=== PATIENT | female | born 1985 | race Caucasian/White ===

== ENCOUNTER 2018-11-09 07:15 | Day surgery (SDC) | payer BC, OTHER ==
[2018-11-08 10:58] VITALS: BMI 33.6
[2018-11-09] MEDS ORDERED: MIDAZOLAM HCL 2 MG/2 ML SINGLE DOSE VIAL ONE ×2 (08:20→09:05)
[2018-11-09] MEDS ORDERED: PROPOFOL 20 ML ONE (08:20)
[2018-11-09] MEDS ORDERED: SUCCINYLCHOLINE CHLORIDE 200 MG/10 ML VIAL ONE (08:20)
[2018-11-09] MEDS ORDERED: fentaNYL CITRATE 250 MCG/5 ML VIAL ONE (08:20)
[2018-11-09] MEDS ORDERED: DEXAMETHASONE SOD PHOSPHATE 4 MG/1 ML VIAL ONE (08:21)
[2018-11-09] MEDS ORDERED: LIDOCAINE HCL/PF 2% SDV 5ML VIAL ONE (08:21)
[2018-11-09] MEDS ORDERED: ceFAZolin SODIUM 1 GM VIAL ONE (09:23)
[2018-11-09] MEDS ORDERED: ceFAZolin SODIUM 1 GM VIAL IVPB ONE (09:25)
[2018-11-09] MEDS ORDERED: ONDANSETRON 4 MG/2 ML VIAL IVPUSH PRN (09:44)
[2018-11-09] MEDS ORDERED: oxyCODONE HCL 5 MG TABLET PO PRN ×2 (09:44)
[2018-11-09] MEDS ORDERED: LACTATED RINGERS SOLUTION 1,000 ML IV SCH (09:45)
[2018-11-09] MEDS ORDERED: BUPIVACAINE HCL/PF 0.5% (5MG/ML) 10 ML VIAL ONE (09:52)
[2018-11-09] MEDS ORDERED: BUPIVACAINE HCL/PF (5 MG/ML) 30 ML VIAL IJ ONE (09:55)
--- NOTE | 2018-11-09 10:25 | OP ---
Operative Note - Note: Operative Date: 11/09/18 Pre-Operative Diagnosis: Painful Mass Left Lower Breast Operation: Excision of Painful Lower Breast Mass Post-Operative Diagnosis: Same as Pre-op Surgeon: David Malcolm Anesthesia: General Specimens Removed: Mass Lower Breast Operative Report Dictated: Yes
--- NOTE | 2018-11-09 10:59 | OP ---
DATE OF OPERATION: 11/09/2018 PREOPERATIVE DIAGNOSIS: Painful mass, left lower breast. POSTOPERATIVE DIAGNOSIS: Painful mass, left lower breast. PROCEDURE PERFORMED: Excision of painful mass, left lower breast. SURGEON: David Kaiser MD ANESTHESIA: General via LMA. DESCRIPTION OF PROCEDURE: The patient was on the operating table in the supine position, and general anesthesia was administered by the anesthesiologist. The area of the left breast was prepped and draped in the usual sterile manner. An elliptical excision was designed with the patient in a standing position with vertical orientation, and these markings were now used as a guide for surgery. The elliptical outline was incised with a No. 15 scalpel blade and carried down sharply through subcutaneous tissues around this chronically draining area. The dissection was continued down deep into subcutaneous tissues, and excision included both fat and breast tissue of the inferior pole of the breast. Once excision was complete, hemostasis was achieved with the electrocautery. The deep tissues were then closed with No. 3-0 Biosyn suture in interrupted buried fashion. Skin was then closed in layered fashion with both 3-0 and 4-0 Biosyn sutures in interrupted buried fashion, and 5-0 nylon suture in simple interrupted fashion was used for skin closure. Sterile dressings were then applied and secured with a surgical bra. The patient was then awoken from anesthesia without any difficulty and taken from the operating room to the recovery room in satisfactory condition having tolerated the procedure well. DAVID KAISER M.D. /[id number]
[2018-11-09] MEDS ORDERED: oxyCODONE HCL 5 MG TABLET ONE (11:41)
[2018-11-09 12:00] VITALS: TEMP 97.9
[2018-11-09 12:04] VITALS: BP 130/70; PULSE 80
--- NOTE | 2018-11-10 14:22 | PATH ---
Surgical Pathology Report Patient Name: YAMILE [facility]ARLANE [facility]. Rec. #: [id number] /Age/Gender: 1985 (Age: 33) / F Account: [id number] Location: [facility] Taken: 11/09/2018 Received: 11/09/2018 Reported: 11/10/2018 Physicians: David Malcolm M.D. Specimen(s) Received EXCISED TISSUE LEFT BREAST Clinical History Left breast mass Final Diagnosis LEFT BREAST TISSUE, EXCISION: SKIN WITH RUPTURED EPIDERMAL INCLUSION CYST WITH ASSOCIATED DERMAL FIBROSIS AND ACUTE AND CHRONIC INFLAMMATION. BENIGN BREAST TISSUE WITH AREAS OF DUCTAL DILATATION PRESENT. Electronically Signed Martinez Vazquez M.D. Gross Description Received in formalin labeled "excised tissue left breast," is a 4.5 x 3.2 x 2.2 cm unoriented portion of fibroadipose tissue which is surfaced by a 4.2 x 2.0 cm marinelli, elliptical, unremarkable portion of skin. There is no needle localization wire present. The specimen is inked green and serially sectioned. Sectioning reveals unremarkable underlying soft tissue. X Ray Equipment Tester sections are submitted in 4 cassettes. Total formalin fixation time: Approximately 7 hours DL/11/09/2018 saudi/11/09/2018
== END 2018-11-09 12:06 | disposition home or self-care (01) ==
LOC: JASU-SURG 07:15
PROVIDERS: ATTEND Plastic Surgery
PROC: 0HBUXZX (ICD-10-PCS; principal; 2018-11-09 09:00)
DX: L72.0 Epidermal cyst (principal)
CPT/HCPCS: 84703; 88304-TC; 94760

== ENCOUNTER 2022-03-10 16:13 | Emergency (ER) | payer OTHER ==
[2022-03-10 16:26] VITALS: BP 128/81; PULSE 86; RESP 18; TEMP 98.5; BMI 31.1
== END 2022-03-10 18:01 | disposition home or self-care (01) ==
LOC: FER 16:13
DX: R10.9 Unspecified abdominal pain (principal)
CPT/HCPCS: 99283-25